=== PATIENT | male | born 1975 | race Two or more races ===

== ENCOUNTER 2024-08-07 20:17 | Inpatient (IN) | payer OTHER ==
[2024-08-07 20:44] VITALS: BMI 22.6
[2024-08-07] MEDS ORDERED: P-EPHED 60MG/TRIPROLIDI 2.5MG TABLET PO PRN (22:35)
[2024-08-07] MEDS ORDERED: guaiFENesin 600 MG TABLET.ER (FP) PO PRN (22:35)
[2024-08-07] MEDS ORDERED: IBUPROFEN 400 MG TABLET (FP) PO PRN (22:35)
[2024-08-07] MEDS ORDERED: NICOTINE POLACRILEX 2 MG GUM BUC PRN (22:35)
[2024-08-07] MEDS ORDERED: BENZONATATE 200 MG CAPSULE PO PRN (22:35)
[2024-08-07] MEDS ORDERED: BENZOCAINE/MENTHOL (CHLORASEPTIC ) LOZENGE MM PRN (22:35)
[2024-08-07] MEDS ORDERED: POLYETHYLENE GLYCOL (HEALTHYLAX) 3350 17 GM PACKET PO PRN (22:35)
[2024-08-07] MEDS ORDERED: DICYCLOMINE HCL 10 MG CAPSULE PO PRN (22:35)
[2024-08-07] MEDS ORDERED: ACETAMINOPHEN 325 MG TABLET (FP) PO PRN (22:35)
[2024-08-07] MEDS ORDERED: BISMUTH SUBSALICYLATE 524 MG/30 ML PO PRN (22:35)
[2024-08-07] MEDS ORDERED: NALOXONE (NARCAN) HCL 4 MG/0.1 ML SPRAY NS PRN (22:35)
[2024-08-07] MEDS ORDERED: MAG HYDROX/AL HYDROX/SIMETH 30 ML UNIT-DOSE CUP PO PRN (22:35)
[2024-08-07] MEDS ORDERED: NICOTINE POLACRILEX 2 MG LOZENGE BC PRN (22:35)
[2024-08-07] MEDS ORDERED: IBUPROFEN 600 MG TABLET (FP) PO PRN (22:35)
[2024-08-07] MEDS ORDERED: LOPERAMIDE HCL 2 MG CAPSULE PO PRN (22:35)
[2024-08-07] MEDS ORDERED: ONDANSETRON *ODT* 4 MG TABLET SL PRN (22:35)
[2024-08-07] MEDS ORDERED: MAGNESIUM HYDROX 2400MG/30ML ORAL SUSPENSION 30 ML CUP PO PRN (22:35)
[2024-08-08] MEDS: PRENATAL VITAMINS W/ FOLIC ACID TABLET (FP) PO SCH (10:00)
[2024-08-08 11:15] LABS: HEMATOCRIT 38.1 % (40.1-51.0); HEMOGLOBIN 12.5 g/dL (13.7-17.5); MCHC 32.8 g/dl (32.3-36.5); MEAN CELL VOLUME 96.2 fl (79.0-92.2); MEAN PLT VOLUME 11.4 fl (9.4-12.4); PLATELET COUNT 207 x10^3/uL (163-337); RDW 13.2 % (12.1-15.9)
[2024-08-08 11:22] LABS: POTASSIUM 4.3 mmol/L (3.5-5.1)
[2024-08-08 11:32] LABS: BLOOD UREA NITROGEN 28.5 mg/dL (7-18); CALCIUM 9.3 mg/dL (8.5-10.1)
[2024-08-08 11:33] LABS: ALBUMIN 3.5 g/dl (3.4-5.0)
[2024-08-08 11:36] LABS: CREATININE 1.4 mg/dL (0.55-1.3)
[2024-08-08 11:37] LABS: BILIRUBIN,TOTAL 0.4 mg/dL (0.2-1)
[2024-08-08] MEDS ORDERED: methaDONE HCL 10 MG TABLET (FOR DETOX USE ONLY) PO ONE (12:10)
[2024-08-08] MEDS ORDERED: methaDONE HCL 10 MG TABLET PO ONE (17:00)
[2024-08-08] MEDS ORDERED: MELATONIN 5 MG TABLETS PO SCH (22:00)
[2024-08-08] MEDS: THIAMINE 100 MG TABLET PO SCH (22:12)
[2024-08-08] MEDS: hydrOXYzine PAMOATE 25 MG CAPSULE (FP) PO PRN (22:13)
[2024-08-08] MEDS: METHOCARBAMOL 500 MG TABLET PO PRN (22:13)
[2024-08-08] MEDS: SUVOREXANT 10 MG TABLET PO PRN (22:13)
[2024-08-09 06:32] VITALS: TEMP 97.3
[2024-08-09] MEDS ORDERED: methaDONE HCL 10 MG TABLET PO ONE (09:37)
[2024-08-09 10:19] VITALS: BP 128/73; PULSE 62; RESP 18
[2024-08-09] MEDS: methaDONE 80 MG, methaDONE 20 MG PO ONE (10:33)
[2024-08-09 12:57] LABS: POTASSIUM 3.7 mmol/L (3.5-5.1)
[2024-08-09 13:01] LABS: BLOOD UREA NITROGEN 20.6 mg/dL (7-18); CALCIUM 8.8 mg/dL (8.5-10.1)
[2024-08-09 13:05] LABS: CREATININE 0.9 mg/dL (0.55-1.3)
== END 2024-08-09 11:00 | disposition other institution (70) | DRG 897 ==
LOC: YASAS 20:17 → Y6N 23:06
PROVIDERS: ADMIT Allergy & Immunology; ATTEND Allergy & Immunology
PROC: HZ2ZZZZ Detoxification Services for Substance Abuse Treatment (ICD-10-PCS; principal; 2024-08-07)
DX: F11.20 Opioid dependence, uncomplicated (principal); F14.20 Cocaine dependence, uncomplicated; F19.282 Other psychoactive substance dependence with psychoactive substance-induced sleep disorder; F19.280 Other psychoactive substance dependence with psychoactive substance-induced anxiety disorder; Z59.01 Sheltered homelessness; F17.210 Nicotine dependence, cigarettes, uncomplicated; F19.24 Other psychoactive substance dependence with psychoactive substance-induced mood disorder; B18.2 Chronic viral hepatitis C; R74.01 Elevation of levels of liver transaminase levels
CPT/HCPCS: 36415; 80048; 80053; 80305; 80307; 85027; 86780; 93005; 93010